=== PATIENT | female | born 1950 | race Caucasian/White ===

== ENCOUNTER → 2017-01-14 | Day surgery (SDC) | payer OTHER ==
[~2017-01-14] VITALS: Ht 165.1 cm; Wt 81.0 kg
[~2017-01-14] MED LIST: ACETAMINOPHEN 325 MG TAB ONE; ACETAMINOPHEN 325 MG TAB PO PRN; ALBU1AER9 INH; ALBUTEROL HFA 8 GM INHALER INH PRN; ASCO1CAP3 PO; ASPCH81 PO; ASPIRIN 81 MG CHEW PO SCH; ASPIRIN 81 MG ECTAB PO SCH; ATEN-173 PO; ATEN50TA8 PO; ATROPINE SULFATE 0.1 MG/ML 5ML SYR IV PRN; B-COTAB53 PO; CHOL1CAP27 PO; CHOL2000 PO; CLOPIDOGREL BISULFATE 300 MG TAB PO ONE; CLOPIDOGREL BISULFATE 75 MG TAB PO SCH; CYAN500T13 PO; CYANOCOBALAMIN 500 MCG TAB (VIT B-12) PO SCH; DiphenhydrAMINE HCL 50 MG/ML VIAL ONE; EPTIFIBATIDE 0.75 MG/ML 75MG VIAL IV ONE; EPTIFIBATIDE 2 MG/ML 10 ML VIAL IV ONE; EPTIFIBATIDE BOLUS / DRIP IV ONE; FENTANYL CITRATE INJ 50 MCG/1 ML 2 ML VIAL ONE; FLUTICASONE HFA 110MCG INHALER INH SCH; FLVHFA110 INH; GLC/500 PO; HEPARIN SOD (PORCINE) 1000 UNIT/ML 10 ML VIAL ONE; HYDROCORTISONE SOD SUCCINATE 100 MG/2 ML VIAL ONE; LEVO50TA PO; LEVOTHYROXINE 50 MCG TAB PO SCH; LISI10TA PO; LISINOPRIL 10 MG TAB PO SCH; LORAZEPAM INJ 0.5 MG in SYRINGE 0.75 ML IV PRN; MAXZIDE PO; MIDAZOLAM HCL 1 MG/ML 2ML VIAL ONE; MoRPHine SULFATE 2 MG/ML CARP IV PRN; NITROGLYCERIN/D5W 100MCG/ML 20ML SYR ONE; NiCARDipine HCL INJ 2.5 MG/ML 10 ML AMP ONE; ONDANSETRON INJ 2 MG/ML 2 ML VIAL IV PRN; PLV75 PO; RANITIDINE HCL 25 MG/ML INJ ONE; SODIUM CHLORIDE 0.9% 1000ML 1,000 ML IV SCH; SYN50 PO; URSO1TAB10 PO; VITA400C3 PO
[2017-01-14 07:15] VITALS: PULSE 62; TEMP 36.3; O2SAT 97; Ht 165.1 cm; Wt 81.0 kg
--- NOTE | 2017-01-14 09:04 | History & Physical Bridge Note ---
H&P Re-Evaluation Bridge Note: I have examined the patient, reviewed the History & Physical and in the interval since the performance of the History & Physical I have noted the following changes of clinical significance: No changes noted
--- NOTE | 2017-01-14 09:11 | Cardiac Catheterization ---
Procedure Note Procedure Date Jan 14, 2017. Pre-Procedure Diagnosis Positive Stress Test AUC Score 7 Post-Procedure Diagnosis Severe CAD Procedure(s) Performed Coronary Angiography Glue Spreader Dr. Stewart Energy Trader(s) None Estimated Blood Loss None Medication(s) Heparin, Versed, Lidocaine 1% Solucortef,Zantac, Benadryl Summary of Findings Single Vessel CAD with a 95% proximal LAD Hemodynamics Rest Ao: 122/59 Final Ao: 147/76 LV: valve not crossed Recommendations PCI without planned CABG Specimens None Radiation Exposure (mGy) 1423 Contrast (mls) 97 Fluids (cc crystalloids) 46 Procedural Complication(s) None Disposition ACC Data Cardiac Status Clinical evaluation leading to the procedure CAD Presntation: Sx unlikely to be ischemic, Positive Stress Test Heart Failure: No Cardiogenic Shock w/in 24Hrs: No Cardiac Arrest w/in 24Hrs: No Imaging studies past 6 months: Yes Stress Echocardiogram: Yes - Positive Coronary Anatomy Dominant: Right Left Main (% Stenosis): Normal LAD (% Stenosis): Proximal (95) Circumflex (% Stenosis): Normal RCA (% Stenosis): Normal Ramus (% Stenosis): Normal Diagnostic Status: Elective Closure Device Percutaneous Entry Location: Radial
--- NOTE | 2017-01-14 10:26 | CARDIAC CATH REPORT ---
PROCEDURE: Coronary angiography. HISTORY OF PRESENT ILLNESS: The patient is a 66-year-old diabetic female who presented with chest pain and shortness of breath. She had an abnormal exercise stress echocardiogram. PROCEDURE SUMMARY: After informed consent was obtained, the patient was taken to the cardiac catheterization lab where she was prepped and draped in the usual manner for right transradial approach. A Barbeau maneuver was performed and showed good collateral flow to the hand. Preformed 4-German diagnostic catheters were utilized for the coronary angiograms. Following the procedure, the patient underwent coronary intervention and then was admitted in stable condition. CORONARY ANGIOGRAPHY: Selective injections of the left coronary artery revealed the left main trunk to be smooth in appearance, widely patent, and within normal limits. There is a large ramus branch from the LAD. The LAD itself has a subtotal 95% stenosis in its proximal segment. The left circumflex artery consists of 1 small lateral marginal branch and is widely patent. The right coronary artery is hyperdominant and is smooth in appearance, widely patent, and within normal limits. SUMMARY: The patient has single vessel coronary artery disease with a subtotal proximal left anterior descending. RECOMMENDATIONS: For review by the food tester for coronary stent.
--- NOTE | 2017-01-14 10:55 | Procedure Note ---
Post-Mod Sedation Assessment General Date of Moderate Sedation Jan 14, 2017. Vital Signs: Vital Signs Past 12 Hours Date Time Temp Pulse Resp B/P Pulse Ox O2 Delivery O2 Flow Rate FiO2 01/14/17 10:45 62 16 125/49 96 Room Air 01/14/17 10:30 58 18 127/59 96 Room Air 01/14/17 10:17 58 18 134/58 96 Room Air 01/14/17 10:12 62 16 128/56 96 Room Air 01/14/17 10:07 68 18 130/77 96 Room Air 01/14/17 10:02 69 18 127/71 98 Room Air 01/14/17 07:15 36.3 62 16 97 Room Air Review - Discharge Criteria Vital Signs Stable: Yes Alert/Oriented/Conversant: Yes Returned to Baseline Mental St: Yes Nausea Absent/Minimal: Yes Pain/Discomfort/Absent/Minimal: Yes Normal/Baseline Respirations: Yes Active Bleeding?: No Pt Received D/C Instructions: Yes Prescriptions Given: Printed Specific Proced. D/C Criteria Distal Pulses Present (Cardiac: Yes Groin site assessed-Card Cath: N/A Voided Prior To Discharge: Yes Discharged Patients Adult Escort/Transportation: Yes
[2017-01-14 12:42] LABS: BUN/CREATININE RATIO 18.2 (10-20); CALCIUM 8.3 mg/dl (8.5-10.1); CREATININE 1.1 mg/dl (0.60-1.20); POTASSIUM 3.8 mmol/L (3.5-5.1)
[2017-01-14 13:03] LABS: HEMATOCRIT 37.5 % (37-47); IG% 0.2 %; LYMPH % 11.6 %; LYMPH ABS # 1.04 K/uL (1.2-3.4); MEAN CELL VOLUME 87.4 fL (80-100); MEAN CORPUSCULAR HEMOGLOBIN 29.6 pg (25-34); MEAN PLATELET VOLUME 10.1 fL (7.4-10.4); MONO % 0.7 %; NEUT % 87.5 %; PLATELET COUNT 315 K/uL (130-400); RED BLOOD COUNT 4.29 M/uL (4.2-5.4)
[2017-01-14 13:05] LABS: COMPLETE YES; MEAN CORPUSCULAR HGB CONC 33.9 g/dl (32-36)
--- NOTE | 2017-01-14 13:32 | Discharge Instructions ---
Discharge Instructions Procedure Procedure Date: Jan 14, 2017. Reason for Visit: Left Heart Cath/ Abnormal Stress Test Terry. Discharge Discharge Date: Jan 14, 2017. Discharge Diagnosis: Coronary artery stent Last Recorded Wt (Kilograms): 81 Anesthesia Post Anesthesia Instructions: If you have had General Anesthesia or IV Sedation: * Do not drive today. * Resume driving when surgeon permits. * Do not make important decisions or sign legal documents today. * Call surgeon for: 1. Temperature elevations greater than 101 degrees F. 2. Uncontrollable pain. 3. Excessive bleeding. 4. Persistent nausea and vomiting. 5. Medication intolerance (nausea, vomiting or rash). * For nausea and vomiting use only clear liquids such as: tea, soda, bouillon until nausea subsides, then gradually increase diet as tolerated. * If you have any concerns or questions, call your surgeon's office. If physician is unavailable and it is an emergency, call 911 or go to the nearest emergency room. Instructions Activity Recommendations: lifting limitation (No lifting over 2 pounds for 48 hrs. ) Allergies: Coded Allergies: Iodine (Verified Allergy, Intermediate, hives, 05/05/13) Sulindac (Verified Allergy, Intermediate, FINGERS SWELL, 05/05/13) Latex1 -Allergic Contact Dermititis (Verified Allergy, ., 05/05/13) Follow Up Mae Oakes Recommendations: Call your doctor if: * Temperature above 101 degrees * Pain not relieved by pain medicine ordered * There is increased drainage or redness from any incision * You have any unanswered questions or concerns. Your Doctors Instructions noted above were prepared by provider Alphonso Alas. Patient Signature Section: Patient Instructions Signature Page Kylee Goodrich Patient (or Guardian) Signature/Date: I have read and understand the instructions given to me by my caregivers. Caregiver/RN/Doctor Signature/Date: The above-named patient and/or guardian has received patient instructions on this date. + Original Patient Signature Page (only) stays with chart. Please make copy for patient.
--- NOTE | 2017-01-14 13:37 | Discharge Instructions ---
Discharge Instructions Procedure Procedure Date: Jan 14, 2017. Reason for Visit: Left Heart Cath/ Abnormal Stress Test Terry. Discharge Discharge Date: Jan 14, 2017. Discharge Diagnosis: Coronary artery stent Last Recorded Wt (Kilograms): 81 Anesthesia Post Anesthesia Instructions: If you have had General Anesthesia or IV Sedation: * Do not drive today. * Resume driving when surgeon permits. * Do not make important decisions or sign legal documents today. * Call surgeon for: 1. Temperature elevations greater than 101 degrees F. 2. Uncontrollable pain. 3. Excessive bleeding. 4. Persistent nausea and vomiting. 5. Medication intolerance (nausea, vomiting or rash). * For nausea and vomiting use only clear liquids such as: tea, soda, bouillon until nausea subsides, then gradually increase diet as tolerated. * If you have any concerns or questions, call your surgeon's office. If physician is unavailable and it is an emergency, call 911 or go to the nearest emergency room. Instructions Activity Recommendations: lifting limitation (No lifting over 2 pounds for 48 hrs. ), driving or machine use limit (No driving today.), shower/bathe limit ( Can shower on 01/15/17) Recommended Home Diet: resume previous diet, low sodium, low cholesterol, diabetes diet Allergies: Coded Allergies: Iodine (Verified Allergy, Intermediate, hives, 05/05/13) Sulindac (Verified Allergy, Intermediate, FINGERS SWELL, 05/05/13) Latex1 -Allergic Contact Dermititis (Verified Allergy, ., 05/05/13) Follow Up Additional Instructions: Call Dr. Neal's office for any cardiology questions or problems. Can call Dr. Alas's office at [phone] for any questions or problems with cath site right wrist. Follow-up with: Follow up with Dr. Neal as scheduled. Also follow up with your primary provider. Mae Oakes Recommendations: Call your doctor if: * Temperature above 101 degrees * Pain not relieved by pain medicine ordered * There is increased drainage or redness from any incision * You have any unanswered questions or concerns. Your Doctors Instructions noted above were prepared by provider Alphonso Alas. Patient Signature Section: Patient Instructions Signature Page Kylee Goodrich Patient (or Guardian) Signature/Date: I have read and understand the instructions given to me by my caregivers. Caregiver/RN/Doctor Signature/Date: The above-named patient and/or guardian has received patient instructions on this date. + Original Patient Signature Page (only) stays with chart. Please make copy for patient.
[2017-01-14 16:00] VITALS: BP 136/63; PULSE 59; O2SAT 97
--- NOTE | 2017-02-17 12:13 | Cardiac Catheterization ---
Procedure Note Procedure Date January 14, 2017. Pre-Procedure Diagnosis Angina, Positive Stress Test, CAD AUC Score 8 for revacularization Post-Procedure Diagnosis Successful PCI Procedure(s) Performed Coronary Angiography, PTCA, Drug Eluting Stent Senior Cost Accountant Dr. Alas Commissary Assistant(s) KRIS Balderas Estimated Blood Loss 25 ml Medication(s) Fentanyl, Heparin, Integrilin, Nicardipine (Intra-arterial and intracoronary), Versed Clopidogrel 600 mg post PCI Summary of Findings Clinical indications: The patient undergone a stress echocardiogram January 10, 2017 for symptoms of new onset dyspnea on exertion. Greater than [address] segment elevations noted with exercise. Chest discomfort with exercise consistent with angina. Resting echocardiogram with normal LV systolic function. Following exercise anterior and septal hypokinesis. CAD risk factors include type 2 diabetes mellitus, hypertension, dyslipidemia, and cerebrovascular disease. Diagnostic cardiac catheterization performed prior to this PCI procedure by Dr. Kvng Stewart revealed a subtotal early mid LAD occlusion. PADMINI 2 flow.. Catheterization site: 5 Fijian glide sheath right radial artery. This had been inserted at the time of diagnostic cardiac catheterization. PCI equipment: 5 Fijian EBU 3.5 guide catheter, [place] XT J tip guidewire, Medtronic Sprinter 2.0 x 12 mm balloon dilatation catheter, Medtronic Resolute Integrity 2.25 x 14 mm CODY. protocol: Intravenous heparin and Integrilin were administered. Therapeutic activated clotting time documented. Two balloon inflations were then performed to the proximal LAD to maximum pressure 14 atmospheres and maximum duration of 20 seconds. The stent was deployed at a pressure of 10 atmospheres for duration of 45 seconds. Using the stent delivery balloon a 2nd balloon inflation was performed to 14 atmospheres for 10 seconds. Follow-up angiography was then performed. Hemostasis: Terumo TR band. Complications: None. Findings: Guiding angiography revealed a subtotal early mid LAD occlusion. PADMINI 2 flow. Following stent deployment the residual stenosis at the stent site was 0%. There is a step-up and step-down prior to and distal to this stent respectively. There is PADMINI 3 flow present throughout the LAD and in all of its branches. There was no evidence of dissection, thrombus, perforation, or distal embolic event. Plan: The patient was given a loading dose of oral clopidogrel post PCI. She should remain on dual antiplatelet therapy for minimum of 6 months. She should remain on aspirin therapy indefinitely. She is intolerant of statins. She will be continued on beta-vicki and DENIS-inhibitor therapy. She will have continued follow-up in [facility] cardi[facility]. Hemodynamics Rest Ao: 122/59/85 mm HG Final Ao: 128/60/88 mm HG LV: NA Recommendations Medical therapy and/or Counseling, PCI without planned CABG Specimens None Radiation Exposure (mGy) Total of 3319 for both diagnostic and PCI procedures. Contrast (mls) Total of 192 mL Visipaque for both procedures. Fluids (cc crystalloids) Total 154 mL for both procedures. Drains none Anesthesia Intravenous Versed and fentanyl. Procedural Complication(s) None Disposition Brush Head Maker Holding/Recovery ACC Data Cardiac Status Clinical evaluation leading to the procedure CAD Presntation: Positive Stress Test Anginal Classification: CCS II Heart Failure: No Cardiogenic Shock w/in 24Hrs: No Cardiac Arrest w/in 24Hrs: No Imaging studies past 6 months: Yes Stress studies past 6 months: Yes Stress Echocardiogram: Yes - Positive, Risk/Extent of Ischemia (High) Stress Testing w/SPECT MPI: No Cardiac CTA: No Coronary Anatomy Dominant: Right (For complete details of diagnostic angiography please see cardiac catheterization report performed by Dr. Stewart) LAD (% Stenosis): Mid (99) Left Ventricular Angiography EF (%): NA Diagnostic Physician's Name: Kvng Stewart, DO Status: Elective Closure Device Percutaneous Entry Location: Radial Closure Device: Radial Band Recommendations: Medical therapy and/or Counseling, PCI without planned CABG PCI Indication: + Stress Test Lesion Segment Name: Early mid LAD Culprit Artery: Yes Stenosis Prior to Rx (%): 99 Chronic Total Occlusion: No IVUS: No FFR: No Pre-Procedure PADMINI Flow: 2 Previously Treated Lesion: No Lesion Complexity: Non-High/Non-C Lesion Length (mm): 9 Thrombus Present: No Bifurcation Lesion: No Guidewire Across Lesion: Yes Guidewire: Stenosis Post-Procedure (%): 0 Post-Procedure PADMINI Flow: 3 Device(s) Deployed: Yes Type of Device(s): Medtronic Resolute 2.25 X 14 mm CODY Intraprocedure Events Significant Dissection: No Perforation: No
== END | disposition home or self-care (01) ==
LOC: C.CATH 07:02
PROVIDERS: ATTEND Specialist
DX: I25.10 Atherosclerotic heart disease of native coronary artery without angina pectoris (principal); E11.22 Type 2 diabetes mellitus with diabetic chronic kidney disease; I12.9 Hypertensive chronic kidney disease with stage 1 through stage 4 chronic kidney disease, or unspecified chronic kidney disease; E78.5 Hyperlipidemia, unspecified; Z79.899 Other long term (current) drug therapy; E03.9 Hypothyroidism, unspecified; J45.30 Mild persistent asthma, uncomplicated; N18.3 Chronic kidney disease, stage 3 (moderate); Z98.41 Cataract extraction status, right eye; Z98.42 Cataract extraction status, left eye; Z90.710 Acquired absence of both cervix and uterus; Z79.82 Long term (current) use of aspirin; Z82.49 Family history of ischemic heart disease and other diseases of the circulatory system
CPT/HCPCS: 93458; C9600

== ENCOUNTER 2018-12-10 09:23 | Observation (INO) ==
[2018-12-10] MEDS ORDERED: fentaNYL citrate 100 MCG/2 ML VIAL ONE (10:32)
[2018-12-10] MEDS ORDERED: MIDAZOLAM HCL 1 MG/ML 2ML VIAL ONE (10:32)
[2018-12-10] MEDS ORDERED: NiCARDipine HCL INJ 2.5 MG/ML 10 ML AMP ONE (10:33)
[2018-12-10] MEDS ORDERED: HEPARIN (PORCINE) 1000 UNIT/ML 10 ML (CATH LAB USE ONLY) ONE (10:33)
[2018-12-10] MEDS ORDERED: NITROGLYCERIN/D5W 100MCG/ML 20ML SYR ONE (10:34)
[2018-12-10] MEDS ORDERED: HYDROCORTISONE SOD SUCCINATE 100 MG/2 ML VIAL ONE (10:41)
--- NOTE | 2018-12-10 10:44 | History & Physical Bridge Note ---
Date of Service December 10, 2018 History & Physical Bridge Note I have examined the patient, reviewed the History & Physical and in the interval since the performance of the History & Physical I have noted the following changes of clinical significance: no changes noted
--- NOTE | 2018-12-10 10:46 | Pre Anesthesia Assessment ---
Date of Service December 10, 2018 Pre Sedation Assessment Vital Signs Temp Pulse Resp BP Pulse Ox 12/10/18 09:35 36.3 C L 69 16 169/76 H 96 Cardiovascular RRR, no murmur, no edema Respiratory normal respiratory effort, lungs clear to auscultation Pre-Sedation Airway Assessment Smoking Status: Never smoker Hx Sleep Apnea: No Short, Thick Neck: No Thyromental Distance: > or= 3.5 Finger Breadths Oral Cavity: + WNL Mallampati Class: III ASA: ASA3 NPO Status Date of Last Intake of Fluids: 12/09/18 Time of Last Intake of Fluids: 21:15 Date of Last Intake of Solid Food: 12/09/18 Time of Last Intake of Solid Foods: 20:00 Procedure Planning Contraindications for Sedation: none Current Medications Reviewed: Yes Notes The planned sedation has been discussed with the patient. Informed Consent was obtained. I have identified the patient, determined the appropriateness of sedation and have assessed the patient immediately prior to the procedure. All medicine(s) and interventions are by my order.
--- NOTE | 2018-12-10 12:24 | Cardiac Catheterization ---
Cardiac Cath Procedure: Brief Procedure Date December 10, 2018 Pre-Procedure Diagnosis Pre-Procedure Diagnosis: Angina and Positive Stress Test AUC Score AUC Score: 8 Post-Procedure Diagnosis Post-Procedure Diagnosis: Severe CAD (Pre-and post prior stent lesions mid LAD) Procedure(s) Performed Procedure(s) Performed: Coronary Angiography and Left Heart Cath Gamemaster Calvin Arredondo MD Engineering And Development Director(s) Weston Pastrana RN Estimated Blood Loss Estimated Blood Loss: <15 Medication(s) Medication(s): Fentanyl (12.5 mcg IV), Heparin (5000 units IV), Lidocaine 1% (Local infiltration access site), Nicardipine (250 mcg intra-arterial after arterial sheath placed) and Versed (1 mg IV) Medication(s): History of dye allergy without difficulty after premedication Right dominant coronary anatomy Left anterior descending with "candy wrapper" stenoses pre-and post prior stent, 90% proximal 70% distal with distal lesion at the origin of large diagonal branch. The vessel is type II in distribution and gives rise to a large bifurcating high diagonal branch and a moderately large second diagonal branch in its mid vessel Left main long and free of disease Left circumflex: Modest in distribution giving rise to a single obtuse marginal and a small AV groove portion, no disease Right coronary artery dominant distribution of the right ventricular branch in its midportion, long PDA and posterior ventricular branch along the AV groove. No disease LV angiography not performed, LVEDP 16 Preliminary Findings History of dye allergy without difficulty after premedication Right dominant coronary anatomy Left anterior descending with "candy wrapper" stenoses pre-and post prior stent, 90% proximal 70% distal with distal lesion at the origin of large diagonal branch. The vessel is type II in distribution and gives rise to a large bifurcating high diagonal branch and a moderately large second diagonal branch in its mid vessel Left main long and free of disease Left circumflex: Modest in distribution giving rise to a single obtuse marginal and a small AV groove portion, no disease Right coronary artery dominant distribution of the right ventricular branch in its midportion, long PDA and posterior ventricular branch along the AV groove. No disease LV angiography not performed, LVEDP 16 Recommendations Recommendations: PCI without planned CABG Specimens Specimens: None Fluids (cc crystalloids) Fluids (cc crystalloids): 66 Anesthesia Start 1104. 1153 Procedural Complication(s) None
--- NOTE | 2018-12-10 12:35 | Cardiac Catheterization ---
Cardiac Cath Procedure Full Procedure Date December 10, 2018 Pre-Procedure Diagnosis Pre-Procedure Diagnosis: Angina and Positive Stress Test AUC Score AUC Score: 8 Post-Procedure Diagnosis Post-Procedure Diagnosis: Severe CAD (Pre-and post prior stent lesions mid LAD) Procedure(s) Performed Procedure(s) Performed: Coronary Angiography and Left Heart Cath Drywall Mechanic Calvin Arredondo MD Geriatric Assistant(s) Weston Pastrana RN Estimated Blood Loss Estimated Blood Loss: <15 Medication(s) Medication(s): Fentanyl (12.5 mcg IV), Heparin (5000 units IV), Lidocaine 1% (Local infiltration access site), Nicardipine (250 mcg intra-arterial after arterial sheath placed) and Versed (1 mg IV) Summary of Findings History of dye allergy without difficulty after premedication Right dominant coronary anatomy Left anterior descending with "candy wrapper" stenoses pre-and post prior stent, 90% proximal 70% distal with distal lesion at the origin of large diagonal branch. The vessel is type II in distribution and gives rise to a large bifurcating high diagonal branch and a moderately large second diagonal branch in its mid vessel Left main long and free of disease Left circumflex: Modest in distribution giving rise to a single obtuse marginal and a small AV groove portion, no disease Right coronary artery dominant distribution of the right ventricular branch in its midportion, long PDA and posterior ventricular branch along the AV groove. No disease LV angiography not performed, LVEDP 16 Hemodynamics Rest Ao:: 142/59/93 Final Ao: 140/58/93 LV: 141/1/16 Recommendations Recommendations: PCI without planned CABG Specimens Specimens: None Radiation Exposure (mGy) 1123 Contrast (mls) 59 Fluids (cc crystalloids) Fluids (cc crystalloids): 66 Anesthesia Start 1104. 1153 Procedural Complication(s) None ACC Data: Carrot Buncher Cardiac Status Exertional anginal symptoms with stress testing demonstrating LAD distribution ischemia. Prior history of LAD stent 2016 CAD Presenation: Positive Stress Test and Stable angina Anginal Classification: CCS III Heart Failure: No Cardiogenic Shock within 24 Hours: No Cardiac Arrest within 24 Hours: No Imaging Studies Past 6 Months: No Stress Studies Past 6 Months: No Standard Exercise Test: No Stress Echocardiogram: No Stress Testing w/SPECT MPI: Yes - Positive and Risk/Extent of Ischemia (Intermediate) Cardiac CTA: No Coronary Anatomy Dominant: Right Left Main (% Stenosis): Normal LAD (% Stenosis): Mid (90% prior to prior stent, 70% after stent) D1 (% Stenosis): Normal D2 (% Stenosis): Normal Circumflex (% Stenosis): Normal OM1 (% Stenosis): Normal RCA (% Stenosis): Normal R PDA (% Stenosis): Normal R PL1 (% Stenosis): Normal Diagnostic Physicians Name: Calvin Arredondo MD Status: Elective Closure Device Percutaneous Entry Location: Radial Closure Device: Radial Band Recommendations: PCI without planned CABG
[2018-12-10] MEDS ORDERED: CLOPIDOGREL BISULFATE 300 MG TAB ONE (12:38)
[2018-12-10] MEDS ORDERED: ONDANSETRON INJ 2 MG/ML 2 ML VIAL IV PRN (12:45)
[2018-12-10] MEDS ORDERED: ACETAMINOPHEN 325 MG TAB PO PRN (12:45)
[2018-12-10] MEDS ORDERED: GLUCAGON FOR INJ 1 MG VIAL SQ PRN (12:49)
[2018-12-10] MEDS ORDERED: CARBOHYDRATES FOR HYPOGLYCEMIA PO PRN (12:49)
[2018-12-10] MEDS ORDERED: GLUCOSE 40% GEL 15 GM TUBE PO PRN (12:49)
[2018-12-10] MEDS ORDERED: GLUCOSE 10 TABS/TUBE PO PRN (12:49)
[2018-12-10] MEDS ORDERED: DEXTROSE 50% 50 ML SYRINGE IV PRN (12:49)
[2018-12-10] MEDS ORDERED: ALBUTEROL HFA 8 GM INHALER INH PRN (13:15)
[2018-12-10] MEDS: SODIUM CHLORIDE 0.9% 1000ML 1,000 ML IV SCH (13:33)
[2018-12-10] MEDS: INSULIN ASPART 100 UNITS/ML 3 ML PEN SC SCH ×3 (13:58→20:42)
[2018-12-10] MEDS ORDERED: Nursing to Pharmacy Communication ONE (16:29)
--- NOTE | 2018-12-10 17:30 | Post Anesthesia Assessment ---
Date of Service December 10, 2018 Post Sedation Assessment Vital Signs Temp Pulse Pulse Resp BP Pulse Ox 12/10/18 16:45 62 16 116/62 95 12/10/18 15:49 63 12/10/18 15:45 53 L 18 120/77 97 12/10/18 14:45 59 L 16 117/71 96 12/10/18 14:15 63 18 122/77 95 12/10/18 13:45 61 16 143/81 H 96 12/10/18 13:30 56 L 20 136/83 97 12/10/18 13:15 51 L 18 139/89 97 12/10/18 13:00 36.5 C 57 L 18 132/83 99 12/10/18 09:35 36.3 C L 69 16 169/76 H 96 Recovery Score Activity: Moves 4 extremities Respiration: Deep Breath/Cough Circulation: +/-20% PreAnes Value Consciousness: Fully Awake Oxygen Saturation: O2 needed for >90% Discharge Sedation Level of Care: Fast Track Phase II Post Sedation Plan On clinical assessment, the patient appears to have tolerated the sedation without complications. Patient is recovering as anticipated. Patient will continue to be monitored by nursing and may be discharged when sedation discharge criteria are met per below protocol. Upon Completions of procedure and additional 15 minutes continue every 5 minute vital signs and the P.A.R. score; then discharge to a Phase I or Fast Track to Phase II per the following guidelines: * Discharge Patient to appropriate Phase II area if PAR is 8 or greater or return to pre- procedure baseline. The post - procedure orders will be as directed. * If PAR score is less than 8 or not return to pre-procedure baseline then patient will follow Phase I monitoring till PAR is reached for Phase II. The Phase I may be done in procedure room or may call to secure a Phase I area. * If naloxone or flumazenil are used for reversal, hold in Phase I for continued monitoring from when last reversal dose was given for a minimum of 60 minutes or longer pending the nurse and/or physician discretion of patient condition before discharge to Phase II. Please call the Sedation Physician to re-evaluate and complete post-note for discharge to Phase II area. Do NOT discharge from procedure sedation or Phase 1 until post- sedation evaluation note is complete by procedure /sedation MD Sedation Discharge Instructions to be given to the patient at discharge to home.
--- NOTE | 2018-12-10 17:41 | Cardiac Catheterization ---
Cardiac Cath Procedure Full Procedure Date December 10, 2018 Pre-Procedure Diagnosis Pre-Procedure Diagnosis: Angina and Positive Stress Test AUC Score AUC Score: 8 Post-Procedure Diagnosis Post-Procedure Diagnosis: Severe CAD (Pre-and post prior stent lesions mid LAD) Procedure(s) Performed Procedure(s) Performed: Drug Eluting Stent and IVUS Nursing Unit Manager Mitchel Cristina MD Wireline Field Operator(s) Weston Pastrana RN Estimated Blood Loss Estimated Blood Loss: <15 Medication(s) Medication(s): Clopidogrel, Fentanyl (12.5 mcg IV), Heparin (5000 units IV), Nicardipine (250 mcg intra-arterial after arterial sheath placed), Nitroglycerin and Versed (1 mg IV) Summary of Findings History of dye allergy without difficulty after premedication Right dominant coronary anatomy Left anterior descending with "candy wrapper" stenoses pre-and post prior stent, 90% proximal 70% distal with distal lesion at the origin of large diagonal branch. The vessel is type II in distribution and gives rise to a large bifurcating high diagonal branch and a moderately large second diagonal branch in its mid vessel Left main long and free of disease Left circumflex: Modest in distribution giving rise to a single obtuse marginal and a small AV groove portion, no disease Right coronary artery dominant distribution of the right ventricular branch in its midportion, long PDA and posterior ventricular branch along the AV groove. No disease LV angiography not performed, LVEDP 16 Indication: Angina, abnormal stress test Access: 6 [place] right radial artery Catheters: EBU 3.5 guide Findings: For full details of patient's coronary angiography please cath report dictated by Dr. Arredondo. Briefly, patient found to have severe single vessel disease with 90% sequential lesions proximal and distal to prior stent. Decision to proceed with PCI. -- PCI -- Antithrombotic therapy: Heparin, clopidogrel Procedure: Left main cannulated with EBU 3.5 guide Twisthand 50 wire passed across lesion into distal vessel Mid LAD lesions predilated with 2.0 compliant balloon IVUS use to assess extent of in-stent restenosis, for vessel sizing. 2.25 x 12 mm Lohn drug-eluting stent overlapped across distal aspect of prior stent 2.5 x 8 mm Lohn drug-eluting stent placed just after first diagonal overlapping across proximal aspect of prior stent Stents post-dilated with 2.5 stent balloon to high atmospheres IC vasodilators administered for spasm Post procedure PADMINI 3 flow, stent well expanded with minimal residual stenosis and no apparent cardiac complications. Arterial Closure: TR band Summary: 1. Successful PCI of mid LAD lesions with 2 drug-eluting stents, 2.5 x 8 mm Addy overlapping proximal aspect of prior stent, 2.25 x 12 mm Lohn overlapping distal aspect of prior stent. Recommendations: To PCU for continued monitoring Loaded with clopidogrel 600 mg in brick and blocker aid labor Continue dual-antiplatelet therapy for at least 6 months Continue statin, and ASCVD risk factor modification Consult cardiac Rehab Hemodynamics Rest Ao:: 134/53/83 Final Ao: 131/57/87 LV: 141/19 Recommendations Recommendations: PCI without planned CABG Specimens Specimens: None Radiation Exposure (mGy) 2154 Contrast (mls) 146 Fluids (cc crystalloids) Fluids (cc crystalloids): 106 Drains Drains: None Anesthesia Moderate Procedural Complication(s) None Disposition PCU ACC Data: Rehabilitation Medicine Physician Cardiac Status Clinical evaluation leading to the procedure CAD Presenation: Positive Stress Test Anginal Classification: CCS III Heart Failure: No Cardiogenic Shock within 24 Hours: No Cardiac Arrest within 24 Hours: No Imaging Studies Past 6 Months: Yes Stress Studies Past 6 Months: Yes Stress Testing w/SPECT MPI: Yes - Positive Diagnostic Physicians Name: Mitchel Cristina MD Closure Device Percutaneous Entry Location: Radial Closure Device: Radial Band Recommendations: PCI without planned CABG PCI Indication: + Stress Test Lesion Segment Name: Mid LAD Culprit Artery: Yes Stenosis Prior to Rx (%): 90 Chronic Total Occlusion: No IVUS: Yes FFR: No Pre-Procedure PADMINI Flow: 3 Previously Treated Lesion: Timeframe: 1-2 years Treated with Stent: Yes In-Stent Restenosis: Yes In-Stent Thrombosis: No Stent Type: CODY Yes Lesion Complexity: Non-High/Non-C Lesion Length (mm): 15 Thrombus Present: No Bifurcation Lesion: No Guidewire Across Lesion: Stenosis Post-Procedure (%): 0 Post-Procedure PADMINI Flow: 3 Devices(s) Deployed: Yes Yes Intraprocedure Events Significant Disection: No Perforation: No
[2018-12-10] MEDS: METOPROLOL TARTRATE 25 MG TAB PO SCH (20:03)
[2018-12-10] MEDS ORDERED: INSULIN ASPART 100 UNITS/ML 3 ML PEN SC ONE (21:10)
[2018-12-11] MEDS: SODIUM CHLORIDE 0.9% 1000ML 1,000 ML IV SCH (02:35)
[2018-12-11 02:40] VITALS: BP 136/66; TEMP 97.9; O2SAT 96
[2018-12-11] MEDS ORDERED: LEVOTHYROXINE SODIUM 50 MCG TABLET PO SCH (06:30)
[2018-12-11 07:01] LABS: Basophils # (auto) 0.01 K/uL (0-0.2); Basophils % (auto) 0.1 %; Eosinophils # (auto) 0.01 K/uL (0-0.5); Eosinophils % (auto) 0.1 %; Hematocrit (blood only) 31.7 % (37-47); Hemoglobin 10.7 g/dL (12.0-16.0); Immature Granulocytes # (auto) 0.01 K/uL (0.00-0.02); Immature Granulocytes % (auto) 0.1 %; Lymphocytes # (auto) 1.67 K/uL (1.2-3.4); Lymphocytes % (auto) 23.4 %; Mean Corpuscular Hgb Conc 33.8 g/dL (32-36); Mean Corpuscular Volume 86.8 fL (80-100); Monocytes # (auto) 0.44 K/uL (0.11-0.59); Monocytes % (auto) 6.2 %; Neutrophils # (auto) 4.99 K/uL (1.4-6.5); Neutrophils % (auto) 70.1 %; Platelet Count 171 K/uL (130-400); RDW Coefficient of Variation 15.2 % (11.5-14.5); Red Blood Count 3.65 M/uL (4.2-5.4); White Blood Count 7.13 K/uL (4.8-10.8)
[2018-12-11] MEDS: INSULIN ASPART 100 UNITS/ML 3 ML PEN SC SCH (07:49)
[2018-12-11] MEDS ORDERED: CLOPIDOGREL BISULFATE 75 MG TAB PO SCH (09:00)
[2018-12-11] MEDS ORDERED: LOSARTAN POTASSIUM 50 MG TAB PO SCH (09:00)
[2018-12-11] MEDS ORDERED: TRIAMTERENE/HCTZ 37.5/25MG CAP PO SCH (09:00)
[2018-12-11] MEDS ORDERED: ASPIRIN 81 MG ECTAB PO SCH (09:00)
[2018-12-11] MEDS: METOPROLOL TARTRATE 25 MG TAB PO SCH (09:06)
[2018-12-11 10:41] VITALS: PULSE 49
--- NOTE | 2018-12-14 06:40 | Discharge Summary ---
Date of Service December 29, 2018 Discharge Data Procedures Performed Operation Date: 12/10/18 11:00 Actual Procedures p Cath, Left with Cors and Vent - Calvin Arredondo MD s Cineradiography w/Routine Exam - Calvin Arredondo MD s Drug Eluting Stent SGl Vessel - Kalin Cristina MD s IVUS Coronary Single Vessel - Kalin Cristina MD
--- NOTE | 2018-12-28 23:32 | Discharge Summary ---
DISCHARGE DIAGNOSES: 1. Coronary artery disease with left anterior descending stenoses, pre and post prior stent. 2. Successful coronary intervention receiving drug-eluting stents. 3. History of type 2 diabetes mellitus. 4. Chronic stage III renal insufficiency. 5. History of contrast media allergy. 6. History of statin intolerance. DISPOSITION: Discharged to home. CONDITION: Stable. MEDICATIONS ON DISCHARGE: Clopidogrel 75 mg p.o. q. day, albuterol inhaler 2 puffs q.i.d., aspirin 81 mg per day, empagliflozin (Jardiance) 10 mg p.o. every day, nystatin topically p.r.n., losartan 50 mg p.o. q. day, Ezetimibe 10 mg p.o. q. day, metformin 500 mg p.o. b.i.d. to be resumed 2 days post-procedure, triamterene/hydrochlorothiazide 37.5/25 mg 1 tablet daily to begin the day post-discharge, ursodiol 500 mg b.i.d., Flovent inhaler 110 mcg 2 times a day, ranitidine 300 mg 2 times a day, aspirin 81 mg per day. SPECIAL INSTRUCTIONS: No driving, lifting or strenuous activity. Call or go to the ER if sudden pain, swelling, bleeding at the puncture site occurs. Examine right radial artery daily. No strenuous activity x3 days. No driving or heavy lifting. Follow up with [facility] Manoj Snyder as scheduled. BRIEF CARDIAC HISTORY: The patient is a 68-year-old female who underwent prior coronary intervention in the left anterior descending on 01/04/2017 for single vessel disease, receiving drug-eluting stent into the proximal left anterior descending. She recently represented with symptoms of increasing angina pectoris and underwent stress nuclear imaging with study demonstrating evidence of LAD distribution ischemia. She is referred for diagnostic cardiac catheterization. For further details, refer to admission H and P. HOSPITAL COURSE: The patient is admitted initially through the diagnostic cardiac catheterization lab due to HISTORY OF DYE ALLERGY patient received premedication with prednisone and Solucortef. Procedure was performed via right radial access. Study demonstrated single vessel disease with stenotic lesions, pre and post-stent implantation in the proximal and mid left anterior descending in a "candy wrapper" appearance. She is referred in the same setting, underwent intervention successfully receiving drug-eluting stents to both pre and post lesions with a 2.25 x 12 mm [place], at the distal aspect of the prior stent 2.5 x 8 mm overlying the proximal area of prior stent. IVUS was used to assess the extent of in-stent restenosis and for vessel sizing. Post-procedure, the patient was observed initially in the dental laboratory technician and telemetry unit. There were no complications. In the morning, patient was ambulatory in the hallway without complaint and was discharged to home on medications as above. Only notable change from prehospital therapies with the resumption of clopidogrel at 75 mg per day after 600 mg p.o. load. MTDD
== END 2018-12-11 11:30 | disposition home or self-care (01) ==
LOC: 2S 09:23 → CC 09:23